=== PATIENT | male | born 1965 ===

== ENCOUNTER 2021-12-22 01:08 | Emergency (ER) | payer OTHER, MEDICAID, SELFPAY ==
[2021-12-22] VITALS (35 sets, daily range): BP systolic 91–148; BP diastolic 51–70; PULSE 60–114; RESP 3–39; TEMP 36.7; O2SAT 96–100; BMI 27.9
[2021-12-22 02:38] LABS: Acetaminophen < 10 ug/mL (10-30); Alanine Aminotransferase 44 IU/L (<50); Albumin 3.5 g/dL (3.5-5.0); Albumin Globulin Ratio 1.2 (1.0-2.8); Alkaline Phosphatase 49 U/L (38-126); Aspartate Aminotransferase 72 IU/L (17-59); BUN Creatinine Ratio 44.2 (6-22); Bilirubin Total 1.3 mg/dL (0.2-1.3); Blood Urea Nitrogen 53 mg/dL (9-20); Calcium 8.4 mg/dL (8.4-10.2); Carbon Dioxide 21 mmol/L (22-32); Chloride 104 mmol/L (98-107); Estimated Glomerular Filt Rate > 60 mL/min (>60); Ethanol (ETOH) < 10 mg/dL; Globulin 2.9 g/dL (1.7-4.1); Glucose 144 mg/dL (70-100); HEMOLYSIS < 15 (0-50); Salicylate < 1.0 mg/dL (<20); Sodium 135 mmol/L (137-145); Total Protein 6.4 g/dL (6.3-8.2)
[2021-12-22 02:46] LABS: Add Manual Diff / Slide Review NO; Basophils Absolute Auto 0 /uL (0-100); Basophils Percent Auto 0.1 % (0-2); Eosinophils Absolute Auto 0 /uL (0-450); Hemoglobin 8.9 g/dL (13.5-17.5); Lymphocytes Absolute Auto 800 /uL (1100-4500); Lymphocytes Percent Auto 5.6 % (25-40); Mean Corpuscular Hemoglobin 25.5 PG (26-34); Mean Corpuscular Volume 79.8 fL (80-100); Monocytes Absolute Auto 1000 /uL (0-900); Monocytes Percent Auto 7.7 % (3-14); Neutrophils Absolute Auto 11700 /uL (1500-7000); Neutrophils Percent Auto 86.6 % (50-75); Platelet Count 90 X10^3/uL (150-400); Red Blood Cell Count 3.51 X10^6/uL (4.5-5.9); Red Cell Distribution Width 18.8 % (11.6-14.8); White Blood Cell Count 13.5 X10^3/uL (4.5-11.0)
[2021-12-22 02:59] LABS: Free T4, Direct Thyroxine 1.82 ng/dL (0.78-2.19)
[2021-12-22 03:14] LABS: Thyroid Stimulating Hormone 0.889 uIU/mL (0.47-4.68)
--- NOTE | 2021-12-22 03:36 | ED_ITS ---
HPI - Psych <Moreno Stock DO - Last Filed: 12/23/21 06:10> General Chief Complaint: Psychiatric Symptoms Stated Complaint: Psych Time Seen by Provider: 12/22/21 03:36 Source: patient, EMS and police Mode of arrival: EMS History of Present Illness HPI Narrative: 56-year-old male smoker with history of cirrhosis and esophageal varices, type 2 diabetes, hepatitis-C, hypertension presents. He was found laying on the side of the road by police. He is a well-appearing and denies any injury, there is no suspicion of trauma, he states that his parents kicked him out of the house and he has had no where to go and was tired. He states he has had a poor appetite and had walked a long distance last night and then felt a cramp in his leg and laid down. He states [place] because he has nowhere else to go. He denies any suicidal or homicidal ideations. He states that he has not been taking his medications for about the past 6-7 days but isn't terribly clear on why this is, vaguely suggesting it is because he does not have them with him. He has had no headache or blurred vision or trouble with speech. He denies any chest pain or shortness of breath. He states that he has crampy abdominal pain is had multiple episodes of bloody stools. He states he primarily and historically has done his medical care at [facility] and was most recently admitted there a few weeks ago by GI. He was admitted at [facility] in September after having a syncopal episode that was found to be due to symptomatic anemia related to GI bleeding from esophageal varices, gastritis and peptic ulcers. He was resuscitated and banded and discharged a few days later. He had a follow-up with GI a few weeks later and reports that he had a repeat band. Related Data Allergies Allergy/AdvReac Type Severity Reaction Status Date / Time Penicillins Allergy Verified 12/22/21 05:52 Review of Systems <Moreno Stock DO - Last Filed: 12/23/21 06:10> Review of Systems Narrative: GENERAL: Denies chills, fatigue, malaise, fever, sweats. HEENT: Denies sinus pain, ear pain, sore throat, difficulty swallowing, dizziness. RESPIRATORY: Denies dyspnea, cough, wheezing, hemoptysis, sputum. CARDIOVASCULAR: Denies chest pain, palpitations, orthopnea, edema, GASTROINTESTINAL: See HPI : Denies dysuria, frequency, incontinence, hematuria, urinary retention. MUSCULOSKELETAL: denies weakness, joint pain, or bony pain SKIN: Denies rash, skin lesions, or other NEUROLOGIC: Denies weakness, headache, numbness, change in speech, confusion, seizures, incoordination. PSYCHIATRIC: No concerning psychosocial issues. 12 point review of systems is negative except for those stated above Patient History <Moreno Stock DO - Last Filed: 12/23/21 06:10> Substance Use Type: methamphetamine Exam <Moreno Stock DO - Last Filed: 12/23/21 06:10> Narrative Exam Narrative: GENERAL: [56] year old patient appears stated age. Well-developed patient, in mild distress. HEAD: Atraumatic. Normocephalic. EYES: Pupils equal round and reactive. Extraocular motions intact. No scleral icterus. No injection or drainage. ENT: Nose without bleeding, purulent drainage. Throat without erythema, tonsillar hypertrophy or exudate. Airway patent. NECK: Trachea midline. Non tender CARDIOVASCULAR: Regular rate and rhythm without murmurs, gallops, or rubs. RESPIRATORY: Clear to auscultation. Breath sounds equal bilaterally. No wheezes, rales, or rhonchi. GASTROINTESTINAL: Abdomen soft, mild generalized tenderness with bowel sounds present in all 4 quadrants, nondistended. EXTREMITIES: No edema or joint tenderness. BACK: Nontender without deformity or crepitance. No flank tenderness. NEURO: AOx3. SKIN: No rash or erythema of visible areas Initial Vital Signs Initial Vital Signs: Vital Signs Temperature 98.1 F 12/22/21 01:28 Pulse Rate 114 H 12/22/21 01:28 Respiratory Rate 18 12/22/21 01:28 Blood Pressure 148/70 H 12/22/21 01:28 Pulse Oximetry 98 12/22/21 01:28 Oxygen Delivery Method 12/22/21 01:28 <Veronica Sharpe DO - Last Filed: 12/23/21 07:12> Initial Vital Signs Initial Vital Signs: Vital Signs Temperature 98.1 F 12/22/21 01:28 Pulse Rate 114 H 12/22/21 01:28 Respiratory Rate 18 12/22/21 01:28 Blood Pressure 148/70 H 12/22/21 01:28 Pulse Oximetry 98 12/22/21 01:28 Oxygen Delivery Method 12/22/21 01:28 Course <Moreno Stock DO - Last Filed: 12/23/21 06:10> Orders Ordered: Discontinued Medications Ceftriaxone Sodium 2,000 mg/ (Sodium Chloride) 100 mls @ 200 mls/hr IV NOW ONE Stop: 12/22/21 05:44 Last Infusion: 12/22/21 07:58 Dose: 0 mls/hr Documented By: Admin: 12/22/21 05:54 Dose: 200 mls/hr Documented By: CRISTOBAL Octreotide Acetate 500 mcg/ (Sodium Chloride) 101 mls @ 10.1 mls/hr IV CONT [facility]; Protocol Last Admin: 12/22/21 18:02 Dose: 50 mcg/hr, 10.1 mls/hr Documented By: Infusion: 12/22/21 17:57 Dose: 50 mcg/hr, 10.1 mls/hr Documented By: Admin: 12/22/21 07:57 Dose: 50 mcg/hr, 10.1 mls/hr Documented By: JUDY Octreotide Acetate (Octreotide 100 Mcg/Ml Vial) 50 mcg IV NOW ONE Stop: 12/22/21 05:44 Last Admin: 12/22/21 06:01 Dose: 50 mcg Documented By: CRISTOBAL Pantoprazole Sodium (Pantoprazole 40 Mg Vial) 80 mg IV NOW ONE Stop: 12/22/21 05:44 Last Admin: 12/22/21 05:56 Dose: 80 mg Documented By: CRISTOBAL Pantoprazole Sodium (Pantoprazole 40 Mg Vial) 40 mg IV BID [facility] Last Admin: 12/22/21 21:20 Dose: 40 mg Documented By: CRISTOBAL Reevaluation(s) Reevaluation #1: Called to see patient, he has produced a 2nd large dark bloody diarrhea Vital Signs Vital signs: Vital Signs - 8 hr 12/22/21 15:00 12/22/21 15:00 12/22/21 15:30 Pulse Rate 62 Respiratory Rate 29 H Blood Pressure 105/69 107/57 L Pulse Oximetry 98 12/22/21 15:30 12/22/21 16:00 12/22/21 16:00 Pulse Rate 62 61 Respiratory Rate 17 17 Blood Pressure 108/56 L Pulse Oximetry 99 99 12/22/21 16:30 12/22/21 16:30 12/22/21 17:00 Pulse Rate 63 Respiratory Rate 19 Blood Pressure 109/55 L 107/59 L Pulse Oximetry 99 12/22/21 17:00 12/22/21 17:30 12/22/21 17:30 Pulse Rate 63 62 Respiratory Rate 16 18 Blood Pressure 115/57 L Pulse Oximetry 99 98 12/22/21 18:00 12/22/21 18:00 12/22/21 18:30 Pulse Rate 60 Respiratory Rate 17 Blood Pressure 102/58 L 103/56 L Pulse Oximetry 96 12/22/21 18:30 12/22/21 19:00 12/22/21 19:00 Pulse Rate 61 60 Respiratory Rate 16 15 Blood Pressure 102/54 L Pulse Oximetry 96 97 12/22/21 19:30 12/22/21 19:30 12/22/21 20:00 Pulse Rate 63 Respiratory Rate 16 Blood Pressure 107/51 L 91/62 Pulse Oximetry 97 12/22/21 20:00 12/22/21 20:30 12/22/21 21:00 Pulse Rate 61 61 Respiratory Rate 15 18 Blood Pressure 130/60 Pulse Oximetry 98 97 12/22/21 21:00 Pulse Rate 73 Respiratory Rate 3 L Blood Pressure Pulse Oximetry 99 <Veronica Sharpe DO - Last Filed: 12/23/21 07:12> Orders Ordered: Discontinued Medications Ceftriaxone Sodium 2,000 mg/ (Sodium Chloride) 100 mls @ 200 mls/hr IV NOW ONE Stop: 12/22/21 05:44 Last Infusion: 12/22/21 07:58 Dose: 0 mls/hr Documented By: MLFrederick Admin: 12/22/21 05:54 Dose: 200 mls/hr Documented By: CRISTOBAL Octreotide Acetate 500 mcg/ (Sodium Chloride) 101 mls @ 10.1 mls/hr IV CONT [facility]; Protocol Last Admin: 12/22/21 18:02 Dose: 50 mcg/hr, 10.1 mls/hr Documented By: Infusion: 12/22/21 17:57 Dose: 50 mcg/hr, 10.1 mls/hr Documented By: Admin: 12/22/21 07:57 Dose: 50 mcg/hr, 10.1 mls/hr Documented By: JUDY Octreotide Acetate (Octreotide 100 Mcg/Ml Vial) 50 mcg IV NOW ONE Stop: 12/22/21 05:44 Last Admin: 12/22/21 06:01 Dose: 50 mcg Documented By: CRISTOBAL Pantoprazole Sodium (Pantoprazole 40 Mg Vial) 80 mg IV NOW ONE Stop: 12/22/21 05:44 Last Admin: 12/22/21 05:56 Dose: 80 mg Documented By: CRISTOBAL Pantoprazole Sodium (Pantoprazole 40 Mg Vial) 40 mg IV BID [facility] Last Admin: 12/22/21 21:20 Dose: 40 mg Documented By: CRISTOBAL Vital Signs Vital signs: Vital Signs - 8 hr 12/22/21 15:00 12/22/21 15:00 12/22/21 15:30 Pulse Rate 62 Respiratory Rate 29 H Blood Pressure 105/69 107/57 L Pulse Oximetry 98 12/22/21 15:30 12/22/21 16:00 12/22/21 16:00 Pulse Rate 62 61 Respiratory Rate 17 17 Blood Pressure 108/56 L Pulse Oximetry 99 99 12/22/21 16:30 12/22/21 16:30 12/22/21 17:00 Pulse Rate 63 Respiratory Rate 19 Blood Pressure 109/55 L 107/59 L Pulse Oximetry 99 12/22/21 17:00 12/22/21 17:30 12/22/21 17:30 Pulse Rate 63 62 Respiratory Rate 16 18 Blood Pressure 115/57 L Pulse Oximetry 99 98 12/22/21 18:00 12/22/21 18:00 12/22/21 18:30 Pulse Rate 60 Respiratory Rate 17 Blood Pressure 102/58 L 103/56 L Pulse Oximetry 96 12/22/21 18:30 12/22/21 19:00 12/22/21 19:00 Pulse Rate 61 60 Respiratory Rate 16 15 Blood Pressure 102/54 L Pulse Oximetry 96 97 12/22/21 19:30 12/22/21 19:30 12/22/21 20:00 Pulse Rate 63 Respiratory Rate 16 Blood Pressure 107/51 L 91/62 Pulse Oximetry 97 12/22/21 20:00 12/22/21 20:30 12/22/21 21:00 Pulse Rate 61 61 Respiratory Rate 15 18 Blood Pressure 130/60 Pulse Oximetry 98 97 12/22/21 21:00 Pulse Rate 73 Respiratory Rate 3 L Blood Pressure Pulse Oximetry 99 MDM - Psych <Moreno Stock, - Last Filed: 12/23/21 06:10> Medical Records Attestation: I reviewed the patient's medical records. Medical records narrative: MELD Score (Model For End-Stage Liver Disease) (12 and older) from [facility] on 12/22/2021 All calculations should be rechecked by clinician prior to use RESULT SUMMARY: 16 points MELD Score (2016)* 6.0% Estimated 3-Month Mortality INPUTS: Dialysis at least twice in the past week ?> 0 = No Creatinine ?> 1.2 mg/dL Bilirubin ?> 1.3 mg/dL INR ?> 1.5 Sodium ?> 135 mEq/L Lab Data Result diagrams: 12/22/21 14:35 12/22/21 02:14 Labs: Lab Results 12/22/21 12/22/21 12/22/21 Range/Units 02:14 02:14 02:14 WBC 13.5 H (4.5-11.0) X10^3/uL RBC 3.51 L (4.5-5.9) X10^6/uL Hgb 8.9 L (13.5-17.5) g/dL Hct 28.0 L (41-53) % MCV 79.8 L (80-100) fL MCH 25.5 L (26-34) PG MCHC 32.0 (30-36) % RDW 18.8 H (11.6-14.8) % Plt Count 90 L (150-400) X10^3/uL Neut % (Auto) 86.6 H (50-75) % Lymph % (Auto) 5.6 L (25-40) % [place] % (Auto) 7.7 (3-14) % Eos % (Auto) 0.0 L (2-4) % Baso % (Auto) 0.1 (0-2) % Neut # (Auto) 16889 H (2747-8812) /uL Lymph # (Auto) 800 L (3745-6760) /uL [place] # (Auto) 1000 H (0-900) /uL Eos # (Auto) 0 (0-450) /uL Baso # (Auto) 0 (0-100) /uL PT (10.1-12.7) SECONDS INR (0.9-1.3) APTT (26.4-36.2) SECONDS Sodium 135 L (137-145) mmol/L Potassium 4.0 (3.4-5.1) mmol/L Chloride 104 (98-107) mmol/L Carbon Dioxide 21 L (22-32) mmol/L BUN 53 H (9-20) mg/dL Creatinine 1.20 (0.66-1.25) mg/dL Estimated GFR > 60 (>60) mL/min BUN/Creatinine Ratio 44.2 H (6-22) Glucose 144 H (70-100) mg/dL Lactate (0.7-2.1) mmol/L Calcium 8.4 (8.4-10.2) mg/dL Total Bilirubin 1.3 (0.2-1.3) mg/dL AST 72 H (17-59) IU/L ALT 44 (<50) IU/L Alkaline Phosphatase 49 (38-126) U/L Ammonia (9-30) umol/L Total Protein 6.4 (6.3-8.2) g/dL Albumin 3.5 (3.5-5.0) g/dL Globulin 2.9 (1.7-4.1) g/dL Albumin/Globulin Ratio 1.2 (1.0-2.8) TSH 0.889 (0.47-4.68) uIU/mL Free T4 1.82 (0.78-2.19) ng/dL Salicylates < 1.0 (<20) mg/dL Acetaminophen < 10 (10-30) ug/mL Ethyl Alcohol < 10 ( - 10) mg/dL SARS-CoV-2 (PCR) (Negative) Blood Type Antibody Screen 12/22/21 12/22/21 12/22/21 Range/Units 02:14 05:50 05:50 WBC (4.5-11.0) X10^3/uL RBC (4.5-5.9) X10^6/uL Hgb 8.0 L (13.5-17.5) g/dL Hct 24.6 L (41-53) % MCV (80-100) fL MCH (26-34) PG MCHC (30-36) % RDW (11.6-14.8) % Plt Count (150-400) X10^3/uL Neut % (Auto) (50-75) % Lymph % (Auto) (25-40) % [place] % (Auto) (3-14) % Eos % (Auto) (2-4) % Baso % (Auto) (0-2) % Neut # (Auto) (1462-7222) /uL Lymph # (Auto) (5749-3298) /uL [place] # (Auto) (0-900) /uL Eos # (Auto) (0-450) /uL Baso # (Auto) (0-100) /uL PT (10.1-12.7) SECONDS INR (0.9-1.3) APTT (26.4-36.2) SECONDS Sodium (137-145) mmol/L Potassium (3.4-5.1) mmol/L Chloride (98-107) mmol/L Carbon Dioxide (22-32) mmol/L BUN (9-20) mg/dL Creatinine (0.66-1.25) mg/dL Estimated GFR (>60) mL/min BUN/Creatinine Ratio (6-22) Glucose (70-100) mg/dL Lactate 2.5 H (0.7-2.1) mmol/L Calcium (8.4-10.2) mg/dL Total Bilirubin (0.2-1.3) mg/dL AST (17-59) IU/L ALT (<50) IU/L Alkaline Phosphatase (38-126) U/L Ammonia 23 (9-30) umol/L Total Protein (6.3-8.2) g/dL Albumin (3.5-5.0) g/dL Globulin (1.7-4.1) g/dL Albumin/Globulin Ratio (1.0-2.8) TSH (0.47-4.68) uIU/mL Free T4 (0.78-2.19) ng/dL Salicylates (<20) mg/dL Acetaminophen (10-30) ug/mL Ethyl Alcohol ( - 10) mg/dL SARS-CoV-2 (PCR) (Negative) Blood Type Antibody Screen 12/22/21 12/22/21 12/22/21 Range/Units 05:50 05:50 06:15 WBC (4.5-11.0) X10^3/uL RBC (4.5-5.9) X10^6/uL Hgb (13.5-17.5) g/dL Hct (41-53) % MCV (80-100) fL MCH (26-34) PG MCHC (30-36) % RDW (11.6-14.8) % Plt Count (150-400) X10^3/uL Neut % (Auto) (50-75) % Lymph % (Auto) (25-40) % [place] % (Auto) (3-14) % Eos % (Auto) (2-4) % Baso % (Auto) (0-2) % Neut # (Auto) (0499-9528) /uL Lymph # (Auto) (4297-4788) /uL [place] # (Auto) (0-900) /uL Eos # (Auto) (0-450) /uL Baso # (Auto) (0-100) /uL PT 17.3 H (10.1-12.7) SECONDS INR 1.5 H (0.9-1.3) APTT 27 (26.4-36.2) SECONDS Sodium (137-145) mmol/L Potassium (3.4-5.1) mmol/L Chloride (98-107) mmol/L Carbon Dioxide (22-32) mmol/L BUN (9-20) mg/dL Creatinine (0.66-1.25) mg/dL Estimated GFR (>60) mL/min BUN/Creatinine Ratio (6-22) Glucose (70-100) mg/dL Lactate (0.7-2.1) mmol/L Calcium (8.4-10.2) mg/dL Total Bilirubin (0.2-1.3) mg/dL AST (17-59) IU/L ALT (<50) IU/L Alkaline Phosphatase (38-126) U/L Ammonia (9-30) umol/L Total Protein (6.3-8.2) g/dL Albumin (3.5-5.0) g/dL Globulin (1.7-4.1) g/dL Albumin/Globulin Ratio (1.0-2.8) TSH (0.47-4.68) uIU/mL Free T4 (0.78-2.19) ng/dL Salicylates (<20) mg/dL Acetaminophen (10-30) ug/mL Ethyl Alcohol ( - 10) mg/dL SARS-CoV-2 (PCR) Negative (Negative) Blood Type A Negative Antibody Screen Negative 12/22/21 12/22/21 12/22/21 Range/Units 08:01 08:14 14:35 WBC (4.5-11.0) X10^3/uL RBC (4.5-5.9) X10^6/uL Hgb 8.1 L 8.0 L (13.5-17.5) g/dL Hct 24.5 L 24.6 L (41-53) % MCV (80-100) fL MCH (26-34) PG MCHC (30-36) % RDW (11.6-14.8) % Plt Count (150-400) X10^3/uL Neut % (Auto) (50-75) % Lymph % (Auto) (25-40) % [place] % (Auto) (3-14) % Eos % (Auto) (2-4) % Baso % (Auto) (0-2) % Neut # (Auto) (6969-2020) /uL Lymph # (Auto) (0029-0086) /uL [place] # (Auto) (0-900) /uL Eos # (Auto) (0-450) /uL Baso # (Auto) (0-100) /uL PT (10.1-12.7) SECONDS INR (0.9-1.3) APTT (26.4-36.2) SECONDS Sodium (137-145) mmol/L Potassium (3.4-5.1) mmol/L Chloride (98-107) mmol/L Carbon Dioxide (22-32) mmol/L BUN (9-20) mg/dL Creatinine (0.66-1.25) mg/dL Estimated GFR (>60) mL/min BUN/Creatinine Ratio (6-22) Glucose (70-100) mg/dL Lactate 0.9 (0.7-2.1) mmol/L Calcium (8.4-10.2) mg/dL Total Bilirubin (0.2-1.3) mg/dL AST (17-59) IU/L ALT (<50) IU/L Alkaline Phosphatase (38-126) U/L Ammonia (9-30) umol/L Total Protein (6.3-8.2) g/dL Albumin (3.5-5.0) g/dL Globulin (1.7-4.1) g/dL Albumin/Globulin Ratio (1.0-2.8) TSH (0.47-4.68) uIU/mL Free T4 (0.78-2.19) ng/dL Salicylates (<20) mg/dL Acetaminophen (10-30) ug/mL Ethyl Alcohol ( - 10) mg/dL SARS-CoV-2 (PCR) (Negative) Blood Type Antibody Screen MDM Narrative Medical decision making narrative: Patient signed out to me by Dr. Stock. Patient is currently sleeping. Easily arousable no complaints. History of esophageal varices with banding times it least x2 as well as ulcers status post banding, was admitted at [facility] October 18 heard the for the same presents today with lower GI bleeding no vomiting currently sleeping hemodynamically stable however hemoglobin has dropped lactic acid is elevated 2.5. Dr. Stock talked with GI physician who states patient likely needs a tips and recommends transferring. Octreotide bolus was given drip started he had 2 very large bowel movements but no further bleeding in the emergency department hemoglobin is actually stable at 8. He is given Protonix he actually is very cooperative and easy throughout the day. Multiple hospitals have been called critical bed shortage she is placed on multiple hospitalist. 1400- [facility] with GI has been notified. Agrees with transfer but waiting bed placement 1730 Dr. Moeller, hospitalist, at [facility] is has been notified of patient's symptoms test results has been accepted by GI she kindly accepts patient. Awaiting bed Patient resigned out to Dr. Stock, anticipate transfer this evening [1800] ([place]) Patient received in sign out from [[place]]. I have reviewed the ongoing clinical course and patient has expected plan to be transferred this evening 2100 - EMS arriving shortly for transfer to [facility] <Veronica Sharpe, DO - Last Filed: 12/23/21 07:12> Lab Data Labs: Lab Results 12/22/21 12/22/21 12/22/21 Range/Units 02:14 02:14 02:14 WBC 13.5 H (4.5-11.0) X10^3/uL RBC 3.51 L (4.5-5.9) X10^6/uL Hgb 8.9 L (13.5-17.5) g/dL Hct 28.0 L (41-53) % MCV 79.8 L (80-100) fL MCH 25.5 L (26-34) PG MCHC 32.0 (30-36) % RDW 18.8 H (11.6-14.8) % Plt Count 90 L (150-400) X10^3/uL Neut % (Auto) 86.6 H (50-75) % Lymph % (Auto) 5.6 L (25-40) % [place] % (Auto) 7.7 (3-14) % Eos % (Auto) 0.0 L (2-4) % Baso % (Auto) 0.1 (0-2) % Neut # (Auto) 22971 H (8890-3813) /uL Lymph # (Auto) 800 L (5014-9985) /uL [place] # (Auto) 1000 H (0-900) /uL Eos # (Auto) 0 (0-450) /uL Baso # (Auto) 0 (0-100) /uL PT (10.1-12.7) SECONDS INR (0.9-1.3) APTT (26.4-36.2) SECONDS Sodium 135 L (137-145) mmol/L Potassium 4.0 (3.4-5.1) mmol/L Chloride 104 (98-107) mmol/L Carbon Dioxide 21 L (22-32) mmol/L BUN 53 H (9-20) mg/dL Creatinine 1.20 (0.66-1.25) mg/dL Estimated GFR > 60 (>60) mL/min BUN/Creatinine Ratio 44.2 H (6-22) Glucose 144 H (70-100) mg/dL Lactate (0.7-2.1) mmol/L Calcium 8.4 (8.4-10.2) mg/dL Total Bilirubin 1.3 (0.2-1.3) mg/dL AST 72 H (17-59) IU/L ALT 44 (<50) IU/L Alkaline Phosphatase 49 (38-126) U/L Ammonia (9-30) umol/L Total Protein 6.4 (6.3-8.2) g/dL Albumin 3.5 (3.5-5.0) g/dL Globulin 2.9 (1.7-4.1) g/dL Albumin/Globulin Ratio 1.2 (1.0-2.8) TSH 0.889 (0.47-4.68) uIU/mL Free T4 1.82 (0.78-2.19) ng/dL Salicylates < 1.0 (<20) mg/dL Acetaminophen < 10 (10-30) ug/mL Ethyl Alcohol < 10 ( - 10) mg/dL SARS-CoV-2 (PCR) (Negative) Blood Type Antibody Screen 12/22/21 12/22/21 12/22/21 Range/Units 02:14 05:50 05:50 WBC (4.5-11.0) X10^3/uL RBC (4.5-5.9) X10^6/uL Hgb 8.0 L (13.5-17.5) g/dL Hct 24.6 L (41-53) % MCV (80-100) fL MCH (26-34) PG MCHC (30-36) % RDW (11.6-14.8) % Plt Count (150-400) X10^3/uL Neut % (Auto) (50-75) % Lymph % (Auto) (25-40) % [place] % (Auto) (3-14) % Eos % (Auto) (2-4) % Baso % (Auto) (0-2) % Neut # (Auto) (2828-4797) /uL Lymph # (Auto) (5127-3121) /uL [place] # (Auto) (0-900) /uL Eos # (Auto) (0-450) /uL Baso # (Auto) (0-100) /uL PT (10.1-12.7) SECONDS INR (0.9-1.3) APTT (26.4-36.2) SECONDS Sodium (137-145) mmol/L Potassium (3.4-5.1) mmol/L Chloride (98-107) mmol/L Carbon Dioxide (22-32) mmol/L BUN (9-20) mg/dL Creatinine (0.66-1.25) mg/dL Estimated GFR (>60) mL/min BUN/Creatinine Ratio (6-22) Glucose (70-100) mg/dL Lactate 2.5 H (0.7-2.1) mmol/L Calcium (8.4-10.2) mg/dL Total Bilirubin (0.2-1.3) mg/dL AST (17-59) IU/L ALT (<50) IU/L Alkaline Phosphatase (38-126) U/L Ammonia 23 (9-30) umol/L Total Protein (6.3-8.2) g/dL Albumin (3.5-5.0) g/dL Globulin (1.7-4.1) g/dL Albumin/Globulin Ratio (1.0-2.8) TSH (0.47-4.68) uIU/mL Free T4 (0.78-2.19) ng/dL Salicylates (<20) mg/dL Acetaminophen (10-30) ug/mL Ethyl Alcohol ( - 10) mg/dL SARS-CoV-2 (PCR) (Negative) Blood Type Antibody Screen 12/22/21 12/22/21 12/22/21 Range/Units 05:50 05:50 06:15 WBC (4.5-11.0) X10^3/uL RBC (4.5-5.9) X10^6/uL Hgb (13.5-17.5) g/dL Hct (41-53) % MCV (80-100) fL MCH (26-34) PG MCHC (30-36) % RDW (11.6-14.8) % Plt Count (150-400) X10^3/uL Neut % (Auto) (50-75) % Lymph % (Auto) (25-40) % [place] % (Auto) (3-14) % Eos % (Auto) (2-4) % Baso % (Auto) (0-2) % Neut # (Auto) (9330-9174) /uL Lymph # (Auto) (3249-4586) /uL [place] # (Auto) (0-900) /uL Eos # (Auto) (0-450) /uL Baso # (Auto) (0-100) /uL PT 17.3 H (10.1-12.7) SECONDS INR 1.5 H (0.9-1.3) APTT 27 (26.4-36.2) SECONDS Sodium (137-145) mmol/L Potassium (3.4-5.1) mmol/L Chloride (98-107) mmol/L Carbon Dioxide (22-32) mmol/L BUN (9-20) mg/dL Creatinine (0.66-1.25) mg/dL Estimated GFR (>60) mL/min BUN/Creatinine Ratio (6-22) Glucose (70-100) mg/dL Lactate (0.7-2.1) mmol/L Calcium (8.4-10.2) mg/dL Total Bilirubin (0.2-1.3) mg/dL AST (17-59) IU/L ALT (<50) IU/L Alkaline Phosphatase (38-126) U/L Ammonia (9-30) umol/L Total Protein (6.3-8.2) g/dL Albumin (3.5-5.0) g/dL Globulin (1.7-4.1) g/dL Albumin/Globulin Ratio (1.0-2.8) TSH (0.47-4.68) uIU/mL Free T4 (0.78-2.19) ng/dL Salicylates (<20) mg/dL Acetaminophen (10-30) ug/mL Ethyl Alcohol ( - 10) mg/dL SARS-CoV-2 (PCR) Negative (Negative) Blood Type A Negative Antibody Screen Negative 12/22/21 12/22/21 12/22/21 Range/Units 08:01 08:14 14:35 WBC (4.5-11.0) X10^3/uL RBC (4.5-5.9) X10^6/uL Hgb 8.1 L 8.0 L (13.5-17.5) g/dL Hct 24.5 L 24.6 L (41-53) % MCV (80-100) fL MCH (26-34) PG MCHC (30-36) % RDW (11.6-14.8) % Plt Count (150-400) X10^3/uL Neut % (Auto) (50-75) % Lymph % (Auto) (25-40) % [place] % (Auto) (3-14) % Eos % (Auto) (2-4) % Baso % (Auto) (0-2) % Neut # (Auto) (6839-9288) /uL Lymph # (Auto) (2733-6408) /uL [place] # (Auto) (0-900) /uL Eos # (Auto) (0-450) /uL Baso # (Auto) (0-100) /uL PT (10.1-12.7) SECONDS INR (0.9-1.3) APTT (26.4-36.2) SECONDS Sodium (137-145) mmol/L Potassium (3.4-5.1) mmol/L Chloride (98-107) mmol/L Carbon Dioxide (22-32) mmol/L BUN (9-20) mg/dL Creatinine (0.66-1.25) mg/dL Estimated GFR (>60) mL/min BUN/Creatinine Ratio (6-22) Glucose (70-100) mg/dL Lactate 0.9 (0.7-2.1) mmol/L Calcium (8.4-10.2) mg/dL Total Bilirubin (0.2-1.3) mg/dL AST (17-59) IU/L ALT (<50) IU/L Alkaline Phosphatase (38-126) U/L Ammonia (9-30) umol/L Total Protein (6.3-8.2) g/dL Albumin (3.5-5.0) g/dL Globulin (1.7-4.1) g/dL Albumin/Globulin Ratio (1.0-2.8) TSH (0.47-4.68) uIU/mL Free T4 (0.78-2.19) ng/dL Salicylates (<20) mg/dL Acetaminophen (10-30) ug/mL Ethyl Alcohol ( - 10) mg/dL SARS-CoV-2 (PCR) (Negative) Blood Type Antibody Screen MDM Narrative Medical decision making narrative: Patient signed out to me by Dr. Stock. Patient is currently sleeping. Easily arousable no complaints. History of esophageal varices with banding times it least x2 as well as ulcers status post banding, was admitted at [facility] October 18 heard the for the same presents today with lower GI bleeding no vomiting currently sleeping hemodynamically stable however hemoglobin has dropped lactic acid is elevated 2.5. Dr. tSock talked with GI physician who states patient likely needs a tips and recommends transferring. Octreotide bolus was given drip started he had 2 very large bowel movements but no further bleeding in the emergency department hemoglobin is actually stable at 8. He is given Protonix he actually is very cooperative and easy throughout the day. Multiple hospitals have been called critical bed shortage she is placed on multiple hospitalist. 1400- [facility], [place] with GI has been notified. Agrees with transfer but waiting bed placement [id number] Dr. Moeller, hospitalist, at [facility] is has been notified of patient's symptoms test results has been accepted by GI she kindly accepts patient. Awaiting bed Patient resigned out to Dr. Stock, anticipate transfer this evening Critical Care Time <Moreno Stock, - Last Filed: 12/23/21 06:10> Critical Care Time Critical Care Time: Yes Total Critical Care Time: 35 Attestation: The high probability of a clinically significant, sudden or life threatening deterioration of the [GI] system(s) required my full and direct attention, intervention and personal management. The aggregate critical care time was [35] minutes. This time is in addition to time spent performing reported procedures but includes the following: [x] Data Review and interpretation [x] Patient assessment and monitoring of vital signs [x] Documentation [x] Medication orders and management Discharge Plan Departure Patient Disposition: [facility] Clinical Impression: Acute GI bleeding, Anemia
[2021-12-22] MEDS: cefTRIAXone 2,000 MG in SODIUM CHLORIDE 0.9% 100 ML 200 MG IV (05:54)
[2021-12-22] MEDS: PANTOPRAZOLE 40 MG VIAL 80 MG IV (05:56)
[2021-12-22 05:59] LABS: Hematocrit 24.6 % (41-53)
[2021-12-22] MEDS: OCTREOTIDE 100 MCG/ML VIAL 50 MCG IV (06:01)
[2021-12-22 06:08] LABS: Lactate (Lactic Acid) 2.5 mmol/L (0.7-2.1)
[2021-12-22 06:15] LABS: INR 1.5 (0.9-1.3); Prothrombin Time 17.3 SECONDS (10.1-12.7)
[2021-12-22 06:18] LABS: PTT Partial Thromboplastin Tim 27 SECONDS (26.4-36.2)
[2021-12-22 06:20] LABS: Ammonia (NH3) 23 umol/L (9-30)
[2021-12-22 06:35] LABS: COVID19 -Nasal RAPID Negative (Negative)
[2021-12-22] MEDS: OCTREOTIDE 500 MCG in SODIUM CHLORIDE 0.9% 100 ML 10.1 MCG IV ×2 (07:57→18:02)
[2021-12-22 08:01] LABS: Reflexed Lactate in 2 Hours Y
[2021-12-22 08:26] LABS: Hematocrit 24.5 % (41-53); Hemoglobin 8.1 g/dL (13.5-17.5)
[2021-12-22 08:40] LABS: Lactate 2HR (Lactic Acid Rflx) 0.9 mmol/L (0.7-2.1)
[2021-12-22 14:52] LABS: Hematocrit 24.6 % (41-53)
[2021-12-22] MEDS: PANTOPRAZOLE 40 MG VIAL IV (21:20)
== END 2021-12-22 21:32 | disposition short-term general hospital (02) ==
PROVIDERS: Emergency Medicine; Emergency Provider Emergency Medicine
DX: K92.2 Gastrointestinal hemorrhage, unspecified (principal); D64.9 Anemia, unspecified; Z20.822 Contact with and (suspected) exposure to COVID-19; R79.89 Other specified abnormal findings of blood chemistry
CPT/HCPCS: 36415; 80053; 80320; 80329; 82140; 83605; 84439; 84443; 85014; 85018; 85025; 85610; 85730; 86850; 86900; 86901; 87635; 96365; 96366; 96367; 96375; 96376; 99284; 99285; C9803; C9113; G0480; J0696; J2354